=== PATIENT | female | born 1940 | race Caucasian/White ===

== ENCOUNTER 2020-07-25 18:45 | Emergency (ER) | payer MEDICARE, OTHER ==
[~2020-07-25] VITALS: Ht 160 cm; Wt 86.4 kg
[~2020-07-25 18:45] MED LIST: HYDR-4353 PO; PHEN-786 PO
--- NOTE | 2020-07-25 19:05 | NUR ---
PASSED PO CHALLENGE. MARIZA BOWERS
[2020-07-25 19:46] VITALS: BP 152/93
== END 2020-07-25 19:48 | disposition home or self-care (01) ==
LOC: ER 18:45
DX: T17.228A Food in pharynx causing other injury, initial encounter (principal); R05 Cough; I10 Essential (primary) hypertension; J44.9 Chronic obstructive pulmonary disease, unspecified; K21.9 Gastro-esophageal reflux disease without esophagitis; F32.9 Major depressive disorder, single episode, unspecified; Z98.890 Other specified postprocedural states; Z88.0 Allergy status to penicillin; Z88.6 Allergy status to analgesic agent; Z88.8 Allergy status to other drugs, medicaments and biological substances; Z79.899 Other long term (current) drug therapy; X58.XXXA Exposure to other specified factors, initial encounter; Y93.89 Activity, other specified; Y92.89 Other specified places as the place of occurrence of the external cause; Y99.8 Other external cause status
CPT/HCPCS: 99283